=== PATIENT | female | born 1995 | race Caucasian/White ===

== ENCOUNTER → 2017-12-06 14:55 | Outpatient (CLI) | payer MEDICARE, OTHER, SELFPAY ==
[2017-12-06 17:25] LABS: Free Thyroxine Index 2.7 ug/dL (5.93-13.13); T4 (Thyroxine) 8.2 ug/dl (4.7-13.3); Thyroid Stimulating Hormone 3.49 uIU/ml (0.358-3.740); Triiodothryronine (T3) Uptake 33 % (31-39)
== END ==
PROVIDERS: PCP Nurse Practitioner Family; Visit Provider Nurse Practitioner Obstetrics & Gynecology
DX: E03.9 Hypothyroidism, unspecified (principal)
CPT/HCPCS: 36415; 84436; 84443; 84479

== ENCOUNTER → 2018-06-05 10:47 | Outpatient (CLI) | payer MEDICARE, OTHER, SELFPAY ==
--- NOTE | 2018-06-05 10:56 | XR_ITS ---
XR knee RT 3V HISTORY: Lateral knee pain ITS.REASON: RT KNEE INSTABILITY ORDERING PHYSICIAN: Arcelia Szymanski PATIENT AGE: 23 years COMPARISON: 05/11/2017 FINDINGS: No fracture or dislocation. No lytic or blastic change. Normal mineralization. No significant arthritic changes evident. 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
[2018-06-05 11:27] LABS: Basophils % 0.5 % (0.1-2.0); Eosinophils # 0.1 K/mm3 (0.0-0.4); Eosinophils % 1.5 % (0.1-12.0); Hemoglobin 11.3 g/dL (12.2-16.2); Lymphocytes # 1.5 K/mm3 (0.7-4.5); Lymphocytes % 20.3 K/mm3 (10-50); Mean Corpuscular HGB Conc 31.4 g/dL (31.8-35.4); Mean Corpuscular Hemoglobin 27.4 pg (27.0-31.2); Mean Corpuscular Volume 87.1 fl (81-99); Mean Platelet Volume 10.4 fl (7.4-10.4); Monocytes # 0.4 K/mm3 (0.1-1.0); Monocytes % 5.9 % (1.7-9.3); Neutrophils # 5.4 K/mm3 (1.8-7.8); Neutrophils % 71.8 % (37.0-80.0); Platelet Count 227 K/mm3 (142-424); Red Blood Count 4.13 M/mm3 (4.20-5.40); Red Cell Distribution Width 13.8 % (11.5-17.5); White Blood Count 7.5 K/mm3 (4.8-10.8)
[2018-06-05 12:57] LABS: Alanine Aminotransferase 33 U/L (12-78); Albumin Level 3.4 gm/dL (3.4-5.0); Albumin/Globulin Ratio 1.1 (1.1-1.8); Alkaline Phosphatase 97 U/L (46-116); Anion Gap 11.4 mEq/L (5-15); Aspartate Amino Transferase 18 U/L (15-37); Bilirubin,Total 0.2 mg/dL (0.2-1.0); Blood Urea Nitrogen 8 mg/dL (7-18); Calcium 8.8 mg/dL (8.5-10.1); Carbon Dioxide 25 mmol/L (21.0-32.0); Chloride 108 mmol/L (98-107); Creatinine,Serum 0.83 mg/dL (0.55-1.02); Estimated Glomerular Filt Rate 85 ml/min (>60); Free T4 (Free Thyroxine) 1.21 ng/dl (0.76-1.46); GFR (African American) 103 ML/MIN (>60); Glucose 95 mg/dL (74-106); Potassium 4.4 mmoL/L (3.5-5.1); Sodium 140 mmol/L (136-145); Total Protein,Serum 6.4 gm/dL (6.4-8.2)
== END ==
PROVIDERS: PCP Nurse Practitioner Family; Visit Provider Nurse Practitioner Family
DX: R25.1 Tremor, unspecified (principal); M25.361 Other instability, right knee; E03.9 Hypothyroidism, unspecified; R53.83 Other fatigue; F51.01 Primary insomnia
CPT/HCPCS: 36415; 73562; 80053; 84439; 84443; 85025

== ENCOUNTER → 2018-07-09 15:21 | Outpatient (CLI) | payer MEDICARE, OTHER, SELFPAY ==
[2018-07-09 15:40] LABS: Basophils % 0.5 % (0.1-2.0); Eosinophils # 0.1 K/mm3 (0.0-0.4); Eosinophils % 1.2 % (0.1-12.0); Hematocrit 35.9 % (37.0-47.0); Hemoglobin 11.5 g/dL (12.2-16.2); Lymphocytes # 1.6 K/mm3 (0.7-4.5); Lymphocytes % 19.4 K/mm3 (10-50); Mean Corpuscular HGB Conc 31.9 g/dL (31.8-35.4); Mean Corpuscular Hemoglobin 27.4 pg (27.0-31.2); Mean Corpuscular Volume 85.9 fl (81-99); Mean Platelet Volume 9.9 fl (7.4-10.4); Monocytes # 0.5 K/mm3 (0.1-1.0); Neutrophils # 6.1 K/mm3 (1.8-7.8); Platelet Count 275 K/mm3 (142-424); Red Blood Count 4.19 M/mm3 (4.20-5.40); Red Cell Distribution Width 13.7 % (11.5-17.5); White Blood Count 8.3 K/mm3 (4.8-10.8)
[2018-07-09 16:20] LABS: HCG Qualitative, Serum Negative (Negative)
[2018-07-09 16:41] LABS: Alanine Aminotransferase 44 U/L (12-78); Albumin Level 3.2 gm/dL (3.4-5.0); Albumin/Globulin Ratio 0.9 (1.1-1.8); Alkaline Phosphatase 115 U/L (46-116); Anion Gap 12.3 mEq/L (5-15); Aspartate Amino Transferase 24 U/L (15-37); Bilirubin,Total 0.3 mg/dL (0.2-1.0); Blood Urea Nitrogen 8 mg/dL (7-18); Calcium 8.8 mg/dL (8.5-10.1); Carbon Dioxide 25 mmol/L (21.0-32.0); Chloride 105 mmol/L (98-107); Estimated Glomerular Filt Rate 78 ml/min (>60); GFR (African American) 94 ML/MIN (>60); Globulin 3.6 gm/dl (1.3-3.2); Glucose 92 mg/dL (74-106); Potassium 4.3 mmoL/L (3.5-5.1); Sodium 138 mmol/L (136-145); Total Protein,Serum 6.8 gm/dL (6.4-8.2)
[2018-07-11 08:46] LABS: Folate 9.6 ng/mL (>3.0); Vitamin B12 268 pg/mL (232-1245)
== END ==
PROVIDERS: Family Provider Nurse Practitioner Family; PCP Nurse Practitioner Family; Visit Provider Specialist
DX: I10 Essential (primary) hypertension (principal); G93.40 Encephalopathy, unspecified; R56.9 Unspecified convulsions
CPT/HCPCS: 36415; 80053; 82607; 82746; 84443; 84703; 85025

== ENCOUNTER → 2018-07-20 10:30 | Outpatient (CLI) | payer MEDICARE, OTHER, SELFPAY ==
--- NOTE | 2018-07-20 10:35 | MR_ITS ---
MR head/brain wo/w con HISTORY: Headaches, seizures, ITS.REASON: evaluation for seizures ORDERING PHYSICIAN: Katheryn Jacobs MD PATIENT AGE: 23 years Comparison: None TECHNIQUE: Standard multiplanar multiecho sequences are performed without and with gadolinium enhancement. FINDINGS: No midline shift, mass effect, intracranial hemorrhage, or hydrocephalus. No evidence of acute infarction. The cerebellopontine angles, cerebellum, and brainstem are unremarkable. The hippocampal gyri have an unremarkable appearance. The temporal horns are symmetric. No pituitary mass. Optic chiasm and corpus callosum are unremarkable. No cerebellar ectopia. No enhancing lesions. No mastoid effusion or sinus air-fluid level. Minimal mucosal thickening involves ethmoid sinuses. IMPRESSION: Negative MRI of the brain without and with contrast
--- NOTE | 2018-07-20 11:25 | HMH.ITSHM ---
levothyroxine pantoprazole aspirin cetirizine promethazine metoprolol ranitidine quetiapine
== END ==
PROVIDERS: Family Provider Nurse Practitioner Family; PCP Nurse Practitioner Family; Visit Provider Specialist
DX: G93.40 Encephalopathy, unspecified (principal); R56.9 Unspecified convulsions; I10 Essential (primary) hypertension
CPT/HCPCS: 70553; A9576

== ENCOUNTER → 2018-08-20 09:16 | Outpatient (POV) | payer MEDICARE, OTHER, SELFPAY | PROVIDERS: Family Provider Nurse Practitioner Family; PCP Nurse Practitioner Family; Visit Provider Specialist | DX: G93.40 Encephalopathy, unspecified (principal); R56.9 Unspecified convulsions; I10 Essential (primary) hypertension | CPT/HCPCS: 95819 ==

== ENCOUNTER → 2018-09-24 09:27 | Outpatient (CLI) | payer MEDICARE, OTHER, SELFPAY ==
--- NOTE | 2018-09-24 10:00 | US_ITS ---
US transvaginal Ordering Physician: Arcelia Szymanski Patient Age: 23 years: Female HISTORY: ITS.REASON: PELVIC PAINpelvic pain several months. TECHNIQUE: Transvaginal pelvic ultrasound. COMPARISON :Previous pelvic ultrasound 10/11/2017. FINDINGS Uterus appears normal size. Slightly anteverted. It measures 8.45 seem in length x 3.7 cm x 4.9 cm. Endometrial stripe measures 6.1 mm. Ovaries more difficult to visualize today than previous study. They appear Normal in size bilaterally Right ovary measures 1.5 cm x 1.1 x 1.45 cm. 1.3 x 0.8 cm follicular cyst at right ovary Left ovary measures 1.9 x 0.75 cm x 1.0 cm Small left ovarian cyst, appear to be. 2 follicular cyst posteriorly largest measures 7.5 mm. No fluid in cul-de-sac No significant new findings versus previous 2017 study. IMPRESSION: ...... Uterus normal size . Anteverted uterus. Normal endometrial stripe . appear normal in size with follicles bilaterally. . No fluid in cul-de-sac
== END ==
PROVIDERS: PCP Nurse Practitioner Family; Visit Provider Nurse Practitioner Family
DX: R10.2 Pelvic and perineal pain (principal)
CPT/HCPCS: 76830

== ENCOUNTER → 2018-10-17 13:14 | Outpatient (CLI) | payer MEDICARE, OTHER, SELFPAY ==
[2018-10-19 13:47] LABS: Neisseria gonorrhoeae, NAA Negative (Negative)
== END ==
PROVIDERS: Visit Provider Nurse Practitioner Obstetrics & Gynecology
DX: R10.2 Pelvic and perineal pain (principal); N92.6 Irregular menstruation, unspecified
CPT/HCPCS: 87491; 87591

== ENCOUNTER → 2019-04-15 13:06 | Outpatient (CLI) | payer MEDICARE, OTHER, SELFPAY ==
--- NOTE | 2019-04-15 13:11 | US_ITS ---
US thyroid HISTORY: ITS.REASON: DHO, HYPOTHYROIDISM, THYROMEGLY ORDERING PHYSICIAN: Arcelia Szymanski APRN PATIENT AGE: 24 years Comparison: None FINDINGS: The right lobe is 3.8 x 1 x 1.6 cm with homogeneous echogenicity. No discrete nodule. The left lobe is 3.7 x 1 x 1.6 cm with homogeneous echogenicity. No discrete nodule. The isthmus has an unremarkable appearance. IMPRESSION: Unremarkable thyroid ultrasound
== END ==
PROVIDERS: PCP Nurse Practitioner Family; Visit Provider Nurse Practitioner Family
DX: E01.0 Iodine-deficiency related diffuse (endemic) goiter (principal)
CPT/HCPCS: 76536

== ENCOUNTER → 2020-04-09 12:35 | Outpatient (CLI) | payer MEDICARE, OTHER, SELFPAY ==
--- NOTE | 2020-04-09 12:35 | US_ITS ---
PROCEDURE: US TRANSVAGINAL CLINICAL INDICATION: pelvic pain- rule out ovarian cyst Right lower quadrant pain COMPARISON: TRANVAG US transvaginal from 09/24/2018 FINDINGS: UTERUS: 9cm x 5cmx 3cm with a combined endometrial thickness of 5.6mm LEFT OVARY: [id number] with a volume of 3.8ml. RIGHT OVARY: [id number] with a volume of 22.5ml. There is a 3 cm right ovarian cyst which appears simple No cul-de-sac fluid. IMPRESSION: 3 cm simple appearing right ovarian cyst Dictated by: Ismael Hernandez MD 04/09/2020 17:17 Electronically signed by Ismael Hernandez MD in [facility] 04/09/2020 17:17
== END ==
PROVIDERS: PCP Nurse Practitioner Family; Visit Provider Nurse Practitioner Obstetrics & Gynecology
DX: R10.31 Right lower quadrant pain (principal)
CPT/HCPCS: 76830

== ENCOUNTER → 2020-04-13 09:50 | Outpatient (CLI) | payer MEDICARE, OTHER, SELFPAY | PROVIDERS: PCP Nurse Practitioner Family; Visit Provider Nurse Practitioner Family | DX: G47.00 Insomnia, unspecified (principal); R53.83 Other fatigue; R51 Headache; G40.909 Epilepsy, unspecified, not intractable, without status epilepticus; Z68.42 Body mass index [BMI] 45.0-49.9, adult; G47.30 Sleep apnea, unspecified | CPT/HCPCS: G0399 ==

== ENCOUNTER 2020-04-26 22:14 | Emergency (ER) | payer MEDICARE, OTHER, SELFPAY ==
[2020-04-26 22:29] VITALS: BP 145/76; PULSE 88; RESP 16; TEMP 37.2; O2SAT 96; BMI 50.1
--- NOTE | 2020-04-26 22:41 | US_ITS ---
PROCEDURE: US TRANSVAGINAL CLINICAL INDICATION: RLQ pain, vag discharge COMPARISON: US TRANSVAGINAL from 04/09/2020 FINDINGS: The uterus is 7 x 3 x 5 cm with a combined endometrial thickness of 3 mm. No uterine mass evident. The right ovary is 4 x 3 cm and contains a 3 cm cyst. Blood flow is present within the right ovary. The left ovary has an unremarkable appearance at 3.4 x 2 cm with blood flow present. No cul-de-sac fluid is evident. IMPRESSION: 3 cm right ovarian cyst otherwise negative pelvic ultrasound Dictated by: Ismael Hernandez MD 04/27/2020 06:40 Electronically signed by Ismael Hernandez MD in [facility] 04/27/2020 06:40
--- NOTE | 2020-04-26 22:44 | HMH.EDABDPAI ---
ED Disposition Clinical Impression: Pneumonia Qualifiers: Pneumonia type: due to unspecified organism Laterality: right Lung location: lower lobe of lung Qualified Code(s): J18.9 - Pneumonia, unspecified organism Ovarian cyst Qualifiers: Laterality: right Qualified Code(s): N83.201 - Unspecified ovarian cyst, right side Disposition: Home, Self-Care Condition on Discharge: Good Instructions: DI for Ovarian Cyst, DI for Pneumonia -- Adult Prescriptions: Azithromycin [Z-Rodriguez 250mg Tab*] 250 mg PO UD DOSE PK #6 tab Prescription Printed Referrals: Arcelia Szymanski APRN [Primary Care Provider] - 3 days James Wade MD [Staff Physician] - - Critical Care Critical Care Time: No Attestation: On 04/26/20, the high probability of a clinically significant, sudden or life threatening deterioration of the following system(s) required my full and direct attention, intervention and personal management. The time I documented below is in addition to time spent performing reported procedures but includes the following listed in this critical care notation. Medical Decision Making - Medical Records Medical records reviewed: Yes: I reviewed the patient's medical records. - Florentino Inquiry Pt receiving controlled substance: No Vital Signs: 04/26/20 22:29 Temperature 99.0 F Temperature Source Oral Pulse Rate [Right] 88 Respiratory Rate 16 Blood Pressure [Right Arm] 145/76 H Blood Pressure Mean [Right Arm] 99 Blood Pressure Source [Right Arm] Automatic Cuff Blood Pressure Position [Right Arm] Sitting 02 Sat by Pulse Oximetry 96 Oxygen Delivery Method Room Air - Lab Data Lab Results 04/26/20 22:40: Urine Color Yellow, Urine Appearance Sl cloudy, Urine pH 7.0, Ur Specific [place] <= 1.005, Urine Protein Negative, Urine Glucose (UA) Negative, Urine Ketones Negative, Urine Blood 2+, Urine Nitrate Negative, Urine Bilirubin Negative, Urine Urobilinogen 0.2, Ur Leukocyte Esterase Negative, Urine RBC 3-5, Ur Squamous Epith Cells 10-20 04/26/20 22:40: Urine HCG, Qual Negative 04/26/20 22:40: WBC 11.4 H, RBC 4.50, Hgb 13.4, Hct 40.7, MCV 90.4, MCH 29.8, MCHC 33.0, RDW 13.6, Plt Count 271, MPV 9.4, Neut % (Auto) 65.7, Lymph % (Auto) 25.2, [place] % (Auto) 6.3, Eos % (Auto) 2.3, Baso % (Auto) 0.5, Neut # (Auto) 7.5, Lymph # (Auto) 2.9, [place] # (Auto) 0.7, Eos # (Auto) 0.3, Baso # (Auto) 0.1 04/26/20 22:40: Sodium 138, Potassium 4.3, Chloride 104, Carbon Dioxide 29, Anion Gap 9.3, BUN 16, Creatinine 0.80, Estimated Creat Clear 101, Estimated GFR 87, Est GFR ( Amer) 106, Glucose 89, Calcium 9.8 Result diagrams: 04/26/20 22:40 04/26/20 22:40 Orders (Tests/Meds): ED MEDICATIONS Discontinued Medications Generic Name Dose Route Start Last Admin Trade Name Freq PRN Reason Stop Dose Admin Ioversol 75 ml 04/27/20 00:08 04/27/20 00:09 Rad-Optiray 350 100ml Vial IV 04/27/20 00:09 75 ml ONCE ONE Administration Protocol Sodium Chloride 10 ml 04/27/20 00:08 04/27/20 00:09 Rad-Saline Flush 10ml Syringe IV 04/27/20 00:09 10 ml ONCE ONE Administration ORDERS Category Date Time Status CT abdomen pelvis w con Stat Cat Scan 04/26/20 23:01 Taken US transvaginal Stat Exams 04/26/20 22:41 Taken - CT Data CT Scan: Abdomen, Pelvis Time Received: 00:[address] Reviewed: Yes: I have reviewed the patient's CT results Findings Narrative: Cholelithiasis, normal appendix, right ovarian cyst, right lower lobe infiltrate - US Data US Images: Pelvis ED US Reviewed: Yes: I have reviewed the patient's US results Findings Narrative: Right ovarian cyst, no tubo-ovarian abscess, normal flow to both ovaries Medical Decision Narrative: Patient here with worsening right lower quadrant pain thought to be due to right ovarian cyst. Transvaginal ultrasound shows no tubo-ovarian abscess, normal flow to both ovaries and no ovarian torsion. CT scan shows a normal appendix. There is a cyst in the right ovary.
[2020-04-26 22:56] LABS: Microscopic, Urine URINE MICROSCOPIC (MICROSCOPIC)
[2020-04-26 22:57] LABS: Basophils # 0.1 K/mm3 (0-0.2); Basophils % 0.5 % (0.1-2.0); Eosinophils # 0.3 K/mm3 (0.0-0.4); Eosinophils % 2.3 % (0.1-12.0); Hematocrit 40.7 % (37.0-47.0); Hemoglobin 13.4 g/dL (12.2-16.2); Lymphocytes # 2.9 K/mm3 (0.7-4.5); Lymphocytes % 25.2 % (10-50); Mean Corpuscular Hemoglobin 29.8 pg (27.0-31.2); Mean Corpuscular Volume 90.4 fl (81-99); Mean Platelet Volume 9.4 fl (7.4-10.4); Monocytes # 0.7 K/mm3 (0.1-1.0); Monocytes % 6.3 % (1.7-9.3); Neutrophils # 7.5 K/mm3 (1.8-7.8); Neutrophils % 65.7 % (37.0-80.0); Platelet Count 271 K/mm3 (142-424); Red Cell Distribution Width 13.6 % (11.5-17.5); White Blood Count 11.4 K/mm3 (4.8-10.8)
[2020-04-26 22:59] LABS: Appearance,Urine SL CLOUDY (Clear); Bilirubin,Urine Negative (Negative); Blood, Urine 2+ (Negative); Color,Urine YELLOW (Yellow); Glucose,Urine (UA) Negative (Negative); Ketones,Urine Negative (Negative); Leukocyte Esterase,Urine Negative (Negative); Nitrate,Urine Negative (Negative); Protein,Urine Negative (Negative); Specific Gravity, Urine <= 1.005 (1.005-1.030); Urobilinogen,Urine 0.2 EU/dl (0.2)
--- NOTE | 2020-04-26 23:01 | CT_ITS ---
PROCEDURE: CT ABDOMEN PELVIS W CON CLINICAL INDICATION: RLQ pain Right lower quadrant pain with vomiting COMPARISON: ABDPELW/WO CT ABD PELVIS W/WO CONTRAST from 10/06/2016 TECHNIQUE: IV Contrast: 75ML OPTIRAY 350 Oral Contrast none Axial images obtained with sagittal and coronal reformats. All CT scans at the facility use one or more dose reduction, viz: automated exposure control, ma/kV adjustment per patient size (including targeted exams where dose is matched to indication, i.e. head), or iterative reconstruction technique. FINDINGS: LOWER THORAX: Patchy tree in bud consolidation in the left lower lobe with parenchymal opacity measuring up to 1 cm which may be inflammatory/infectious and may be confirmed with follow-up.. There is a 4 mm noncalcified nodule in the right lung base. ABDOMEN & PELVIS: Cholelithiasis. The liver, spleen, adrenal glands, pancreas, and kidneys have an unremarkable appearance. No evidence of appendicitis. No intestinal obstruction or free air. There is a 2 cm right ovarian cyst. There is a small umbilical hernia containing fat. No acute bony findings. IMPRESSION: 1. No evidence of appendicitis. 2. 2 cm right ovarian cyst. 3. Patchy infiltrate in the left lower lobe with 1 cm parenchymal density. 4 mm noncalcified nodule right lung base. Consider follow-up to confirm resolution 4. Cholelithiasis Dictated by: Ismael Hernandez MD 04/27/2020 06:35 Electronically signed by Ismael Hernandez MD in [facility] 04/27/2020 06:35
[2020-04-26 23:05] LABS: Urine Pregnancy, HCG Qual. Negative (Negative)
[2020-04-26 23:18] LABS: Anion Gap 9.3 mEq/L (5-15); Blood Urea Nitrogen 16 mg/dl (7-17); Calcium 9.8 mg/dl (8.4-10.2); Carbon Dioxide 29 mmol/L (22.0-30.0); Chloride 104 mmol/L (98-107); Creatinine Clearance Estimated 101 mL/min (50-200); Estimated Glomerular Filt Rate 87 ml/min (>60); GFR (African American) 106 ML/MIN (>60); Glucose 89 mg/dl (74-100); Potassium 4.3 mmoL/L (3.5-5.1); Sodium 138 mmol/L (136-145)
[2020-04-27 00:42] VITALS: BP 136/72; PULSE 81; RESP 16; TEMP 37.2; O2SAT 97
== END 2020-04-27 00:45 | disposition home or self-care (01) ==
PROVIDERS: Emergency Provider Emergency Medicine; PCP Nurse Practitioner Family
DX: J18.9 Pneumonia, unspecified organism (principal); N83.201 Unspecified ovarian cyst, right side; K80.20 Calculus of gallbladder without cholecystitis without obstruction; E66.01 Morbid (severe) obesity due to excess calories; Z68.43 Body mass index [BMI] 50.0-59.9, adult; K21.9 Gastro-esophageal reflux disease without esophagitis; I10 Essential (primary) hypertension; E03.9 Hypothyroidism, unspecified; G43.709 Chronic migraine without aura, not intractable, without status migrainosus; G40.909 Epilepsy, unspecified, not intractable, without status epilepticus; Z79.899 Other long term (current) drug therapy
CPT/HCPCS: 74177; 76830; 80048; 81001; 81025; 85025; 99283; Q9967

== ENCOUNTER → 2020-05-21 08:39 | Outpatient (CLI) | payer MEDICARE, OTHER, SELFPAY ==
--- NOTE | 2020-05-21 08:42 | US_ITS ---
PROCEDURE: US LIVER CLINICAL INDICATION: ELEVATED LIVER ENZYMES COMPARISON: No exams were available for comparison FINDINGS: PANCREAS: Unremarkable. No obvious mass or abnormal fluid collection. No ductal dilatation LIVER: No focal liver lesions demonstrated. Homogeneous echogenicity. No intrahepatic biliary ductal dilatation evident. There is appropriate direction of blood flow within a non dilated portal vein RIGHT KIDNEY: Unremarkable. Normal size and echogenicity. No hydronephrosis, 11 centimeters x 4 centimeters x 7 centimeters GALLBLADDER: Gallstone, gallbladder wall thickness 3.6 millimeters, common bile duct 2.7 millimeters IMPRESSION: Gallstone Dictated by: Tarik Naik 05/21/2020 09:54 Electronically signed by Tarik Naik in [facility] 05/21/2020 09:54
== END ==
PROVIDERS: PCP Nurse Practitioner Family; Visit Provider Nurse Practitioner Family
DX: R74.8 Abnormal levels of other serum enzymes (principal)
CPT/HCPCS: 76705

== ENCOUNTER → 2020-06-22 10:55 | Outpatient (CLI) | payer MEDICARE, OTHER, SELFPAY ==
[2020-06-22 11:33] LABS: Basophils % 0.3 % (0.1-2.0); Eosinophils # 0.2 K/mm3 (0.0-0.4); Eosinophils % 2.5 % (0.1-12.0); Hematocrit 38.6 % (37.0-47.0); Hemoglobin 13.1 g/dL (12.2-16.2); Lymphocytes # 2.2 K/mm3 (0.7-4.5); Lymphocytes % 24.1 % (10-50); Mean Corpuscular Hemoglobin 30.7 pg (27.0-31.2); Mean Corpuscular Volume 90.2 fl (81-99); Monocytes # 0.5 K/mm3 (0.1-1.0); Monocytes % 5.8 % (1.7-9.3); Neutrophils # 6.2 K/mm3 (1.8-7.8); Neutrophils % 67.3 % (37.0-80.0); Platelet Count 225 K/mm3 (142-424); Red Blood Count 4.28 M/mm3 (4.20-5.40); Red Cell Distribution Width 13.2 % (11.5-17.5); White Blood Count 9.2 K/mm3 (4.8-10.8)
[2020-06-22 11:36] LABS: Urine Pregnancy, HCG Qual. Negative (Negative)
[2020-06-22 12:00] LABS: Chloride 104 mmol/L (98-107)
[2020-06-22 12:01] LABS: Potassium 4.4 mmoL/L (3.5-5.1); Sodium 137 mmol/L (136-145)
[2020-06-22 12:03] LABS: Alanine Aminotransferase 126 U/L (12-78); Aspartate Amino Transferase 55 U/L (14-36); Blood Urea Nitrogen 13 mg/dl (7-17); Estimated Glomerular Filt Rate 102 ml/min (>60); GFR (African American) 123 ML/MIN (>60)
[2020-06-22 12:04] LABS: Albumin Level 3.8 g/dl (3.5-5.0); Albumin/Globulin Ratio 1.4 (1.1-1.8); Alkaline Phosphatase 113 U/L (38-126); Anion Gap 11.4 mEq/L (5-15); Bilirubin,Total 0.4 mg/dl (0.2-1.3); Calcium 9.6 mg/dl (8.4-10.2); Carbon Dioxide 26 mmol/L (22.0-30.0); Globulin 2.7 g/dL (1.3-3.2); Glucose 99 mg/dl (74-100); Total Protein,Serum 6.5 g/dl (6.3-8.2)
[2020-06-22 13:19] LABS: Coronavirus 19 IgG Antibody Negative (Negative); Coronavirus 19 IgM Antibody Negative (Negative)
== END ==
PROVIDERS: Visit Provider Surgery
DX: K80.20 Calculus of gallbladder without cholecystitis without obstruction (principal); Z01.818 Encounter for other preprocedural examination
CPT/HCPCS: 36415; 80053; 81025; 85025; 86328

== ENCOUNTER 2020-06-24 06:00 | Day surgery (SDC) | payer MEDICARE, OTHER, SELFPAY ==
[2020-06-24] VITALS (10 sets, daily range): BP systolic 105–145; BP diastolic 68–95; PULSE 78–91; RESP 16–18; TEMP 36.1–36.7; O2SAT 94–99
--- NOTE | 2020-06-24 07:35 | HMH.ANESCL ---
[facility] Anesthesia Checklist - Structural Data Admitted From: Home Planned Operative Procedure/s: arline cohene Consent for Planned Operative Procedure(s) Verified: Yes - Additional verifications Anesthesia Reactions: No Hx Blood Transfusions: No Blood Transfusion Reaction: No - Airway Assessment C-Spine Mobility Assessed: Yes TMJ Mobility Assessed: Yes Dentition: Poor Dentition - Neurological Assessment Level of Consciousness: Awake, Alert, Appropriate - Anesthesia Plan Anesthesia Risk discussed: Yes Anesthesia Plan: Verified ASA Class: III Anesthesia Type: General [facility] History I have reviewed the patient's past medical history: Yes Medical History: Reports:: Gastroesophageal Reflux Disease(GERD), Hypertension, Migraine, Seizures Denies:: Cancer, Diabetes Mellitus Type 1, Diabetes Mellitus Type 2, Internal Pacemaker, MRSA *Have you ever received a pneumonia vaccine?: No *Have you received a flu vaccine this season?: Yes Other Medical History: Reports: Hypothyroidism, Thyroid Disease. Denies: Blood Transfusion Reaction Anesthesia experience/problems:: none Other Surgeries: Yes: Dilation and Curettage. No: Pacemaker Amputation: No Fractures: No - *Social History Last grade of school completed: 9th or 10th Smoking Status: Never smoker Alcohol Intake: never Alcohol Intake Frequency:: other Substance Use Type: denies use *Occupational Status:: disabled Housing: apartment Household Members: family *Travel in the last 8 weeks: None Family Hx:: Diabetes, Hypertension [facility] history: Spontaneous
--- NOTE | 2020-06-24 08:56 | P.OP_ITS ---
Date of procedure: 06/24/20 Pre-op Diagnosis:: Symptomatic gallstones Post-op Diagnosis:: Same Procedure performed:: Laparoscopic cholecystectomy Surgeon:: Gonzalo Qiu MD Chief Controller Station(s):: None DRIVABILITY TECHNICIAN:: Jesús Reed Anesthesia: GETA Estimated blood loss (mL): 40 Clinical Note:: Patient is a 25-year-old female referred by Robyn Szymanski for gallbladder. Patient resides in [place]. She is somewhat of a poor historian. For a couple of months she states that she has had some symptomatology consistent with gallbladder disease. She states that every time she eats that she has vomiting occurring postprandially with some associated pain in the general right abdomen. She states that she is unable to tolerate any oral nutrition. She had been seen in the emergency department and diagnosed with possible ovarian cyst. However, CT scan did reveal findings of gallstone. She underwent ultrasound for confirmation revealing gallstones with mildly thickened gallbladder wall with normal common bile duct. Operative findings:: She has fatty infiltration the liver. She had a distended gallbladder with omental adhesions. There are multiple stones Operative note:: Patient was taken to the operating room. She was positioned in a supine position. General anesthesia was induced via endotracheal tube. Abdomen was prepped and draped in the standard surgical fashion. Subumbilical skin incision was made. Dissection was carried down to fascia and while performing abdominal wall lift Veress needle was inserted. However good insufflation flow and pressures were unable to be achieved. Therefore through approximately 1 mm left subcostal incision Veress needle was inserted and CO2 pneumoperitoneum was achieved to 15 mmHg. 11 mm optical trocar was inserted at the umbilicus. Intraperitoneal contents were visualized. She was positioned in reverse Trendelenburg left side down. A couple 5 mm trochars were inserted in the right upper abdomen. 10 mm trocar was inserted in the epigastrium. Liver was elevated and gallbladder was identified. It was somewhat thickened. There was fatty infiltration of the liver. Gallbladder was retracted anteriorly. Omental adhesions to the gallbladder were taken down using blunt dissection. Prolonged dissection was carried out down to the neck of the gallbladder. Infundibulum/Gallegos's pouch of the gallbladder was retracted anterior laterally. Blunt dissection was carried out the neck of the gallbladder bluntly incising the visceral peritoneum. Dissection was carried out isolating the cystic duct and cystic artery. Cystic duct was multiply clipped and then divided sharply. Cystic artery was carefully coagulated with GABO ultrasonic harmonic becca and divided. Gallbladder was dissected free from the liver in a retrograde fashion using GABO ultrasonic robotic becca. Gallbladder was placed within an Endo Catch retrieval device and removed from the peritoneal cavity via the umbilical trocar site which required extension of the fascial and skin incisions for delivery. Gallbladder fossa was inspected for hemostasis which was assured. Irrigation was performed. Trochars were removed as CO2 pneumoperitoneum was evacuated. Fascia at the umbilicus was closed with multiple interrupted 0 Ethibond sutures. Local anesthetic was infiltrated. Skin incisions were closed with 4-0 Monocryl in a subcuticular fashion. Steri- Strips and dressings were applied. Condition: stable Disposition: PACU Specimens:: Gallbladder and contents Complications:: None immediately apparent
--- NOTE | 2020-06-24 09:08 | HMH.ANESI ---
[facility] Anesthesia Record Part I Intake, IV Amount: 2,200 Estimated blood loss (mL): 0 Urine output (mL): 0 Blood Pressure: 144/86 SaO2: 95 Pulse Rate: 91 Respiratory Rate: 18 Temperature: 97.9 F Patient is:: Awake, Stable Stable to PACU at:: 09:05
--- NOTE | 2020-06-24 10:08 | SUR.PHASEII ---
Pt doing well, no C/O pain. Abdominal dressing intact with 3 upper abdominal dressings with small amt of serosang drng. IV out, discharge instructions reviewed with pt and alli. Discharged poer W/C out to private vehicle, verbalized thanks to staff.
--- NOTE | 2020-06-26 10:03 | HMH.ANESII ---
[facility] Anesthesia Record Part II Discharge Time: 09:35 Destination: [facility] PACU nurse assessment reviewed?: Yes Patient Condition:: Good Anesthesia Complications:: None Swallowing reflex intact?: Yes Cyanosis?: No Blood Pressure: 117/77 Pulse Rate: 85 Temperature: 97.5 F Mental Status: Alert & Oriented Pain level:: 2 Nausea and/or vomitting:: None Intake, IV Amount: 1,500
[2020-06-26 10:04] VITALS: BP 117/77; PULSE 85; TEMP 36.4
== END 2020-06-24 10:08 | disposition home or self-care (01) ==
LOC: OR 06:03
PROVIDERS: PCP Nurse Practitioner Family; Visit Provider Surgery
PROC: 0FT44ZZ Resection of Gallbladder, Percutaneous Endoscopic Approach (ICD-10-PCS; CPT 47562; principal; 2020-06-24 07:30)
DX: K80.20 Calculus of gallbladder without cholecystitis without obstruction (principal); K66.0 Peritoneal adhesions (postprocedural) (postinfection); K76.0 Fatty (change of) liver, not elsewhere classified; I10 Essential (primary) hypertension; K21.9 Gastro-esophageal reflux disease without esophagitis; G43.909 Migraine, unspecified, not intractable, without status migrainosus; R56.9 Unspecified convulsions; E03.9 Hypothyroidism, unspecified; Z83.3 Family history of diabetes mellitus; Z82.49 Family history of ischemic heart disease and other diseases of the circulatory system; Z88.8 Allergy status to other drugs, medicaments and biological substances; Z91.048 Other nonmedicinal substance allergy status
CPT/HCPCS: 47562; 88304; 96374; 99281; J2405; J2710

== ENCOUNTER 2020-06-24 16:41 | Emergency (ER) | payer MEDICARE, OTHER, SELFPAY ==
--- NOTE | 2020-06-24 16:51 | HMH.EDWNDL ---
ED Disposition Clinical Impression: Encounter for wound re-check, Postoperative bleeding from incision Disposition: Home, Self-Care Condition on Discharge: Good Instructions: DI for Post-Surgical Bleeding Additional Instructions: Return to the emergency department or your surgeon if you develop bleeding that soaks through your abdominal binder. If you begin bleeding again, apply pressure for 20 minutes. If this does not resolve bleeding, come back to the emergency room. Otherwise, follow-up with your surgeon as scheduled. - Critical Care Critical Care Time: No Attestation: On 06/24/20, the high probability of a clinically significant, sudden or life threatening deterioration of the following system(s) required my full and direct attention, intervention and personal management. The time I documented below is in addition to time spent performing reported procedures but includes the following listed in this critical care notation. Medical Decision Making - Medical Records Medical records reviewed: Yes: I reviewed the patient's medical records. - Florentino Inquiry Pt receiving controlled substance: No Vital Signs: 06/24/20 16:57 06/24/20 17:05 Temperature 98.7 F Temperature Source Oral Pulse Rate [Radial] 94 H 86 Respiratory Rate 18 24 Blood Pressure [Right Arm] 139/71 109/78 L Blood Pressure Mean [Right Arm] 93 88 Blood Pressure Source [Right Arm] Automatic Cuff Automatic Cuff Blood Pressure Position [Right Arm] Sitting Sitting 02 Sat by Pulse Oximetry 96 99 Oxygen Delivery Method Room Air Room Air Medical Decision Narrative: Dressing was removed, new dressing placed on top of the umbilicus, new Tegaderm placed. Patient applied pressure for 15 minutes and bleeding has resolved. Abdominal binder was placed. Instructed the patient to come in if she soaked through the abdominal binder, though I suspect that rest and increased pressure over the wound will rectify the situation. She has no abdominal pain, low suspicion for acute surgical complication. Discharged home. Wound/Laceration HPI - General Stated Complaint: Surg 0729 Gallbladder,bleeding Time Seen by Provider: 06/24/20 16:51 Source of Information: Patient Limitations: No Limitations - History of Present Illness HPI narrative: This is a 25-year-old female who presents to the emergency department for bleeding from the umbilicus. She had a laparoscopic cholecystectomy today and has been sleeping. When she woke up there was blood underneath the Tegaderm. She has generalized abdominal discomfort from the surgery. No new pain. No injury or fall. No blood thinners. - Related Data Home Medications Medication Instructions Recorded Confirmed levothyroxine 100 mcg tablet 100 mcg PO DAILY 12/10/19 06/24/20 Metoprolol Succinate 25 mg PO QDAY 04/26/20 06/24/20 Montelukast Sodium [Singulair] 10 mg PO QHS 04/26/20 06/24/20 Sulfamethoxazole/Trimethoprim 1 each PO BID 04/26/20 06/24/20 [Bactrim DS tablet] linaclotide 72 mcg capsule 72 mcg PO DAILY 06/01/20 06/24/20 Folic Acid 1 mg PO DAILY 06/22/20 06/24/20 Medroxyprogesterone Acetate 10 mg PO DAILY 06/22/20 06/24/20 levETIRAcetam [Levetiracetam] 500 mg PO DAILY 06/22/20 06/24/20 Aspirin [Aspir 81] 81 mg PO DAILY 06/24/20 06/24/20 Previous Rx's Medication Instructions Recorded vitamin with calcium 1 tab PO DAILY #30 tab 05/15/20 no.72-iron 27 mg-folic acid 1 mg tablet Allergies Allergy/AdvReac Type Severity Reaction Status Date / Time adhesive tape Allergy Intermediate Verified 06/22/20 08:24 diphenhydramine Allergy Mild I-HIVES Verified 06/22/20 08:24 [From [facility]IMO] [facility] History - Hepatitis A Screen Attestation statement:: This patient has been screened for Hepatitis A risk factors. I have reviewed the patient's past medical history: Yes Medical History: Reports:: Gastroesophageal Reflux Disease(GERD), Hypertension, Migraine, Seizures Denies:: Cancer
[2020-06-24 16:57] VITALS: BP 139/71; PULSE 94; RESP 18; TEMP 37.1; O2SAT 96; BMI 39.9
[2020-06-24 17:23] VITALS: BP 123/85; PULSE 80; RESP 18; TEMP 36.7; O2SAT 98
== END 2020-06-24 17:24 | disposition home or self-care (01) ==
PROVIDERS: Emergency Provider Emergency Medicine; PCP Nurse Practitioner Family
DX: K91.840 Postprocedural hemorrhage of a digestive system organ or structure following a digestive system procedure (principal); G43.709 Chronic migraine without aura, not intractable, without status migrainosus; E03.9 Hypothyroidism, unspecified; K21.9 Gastro-esophageal reflux disease without esophagitis; I10 Essential (primary) hypertension; Z91.048 Other nonmedicinal substance allergy status; Z79.899 Other long term (current) drug therapy
CPT/HCPCS: 99281

== ENCOUNTER → 2020-08-04 13:47 | Outpatient (CLI) | payer MEDICARE, OTHER, SELFPAY ==
--- NOTE | 2020-08-04 14:17 | XR_ITS ---
PROCEDURE: XR CHEST PORTABLE CLINICAL HISTORY: eval for pneumonia COMPARISON: No exams were available for comparison FINDINGS: The cardiomediastinal silhouette and pulmonary vascularity are within normal limits. The lungs are clear without infiltrates, suspicious nodules, or pleural effusions. No acute bony abnormalities. IMPRESSION: No acute findings. Dictated by: Ismael Hernandez MD 08/04/2020 15:11 Ismael Hernandez MD in [facility] 08/04/2020 15:11
[2020-08-06 19:51] LABS: Covid-19 Nasal PCR Sendout Lex Not Detected
== END ==
PROVIDERS: Nurse Practitioner Family; PCP Nurse Practitioner Family; Visit Provider Specialist
DX: R05 Cough (principal); R09.89 Other specified symptoms and signs involving the circulatory and respiratory systems; Z03.818 Encounter for observation for suspected exposure to other biological agents ruled out
CPT/HCPCS: 71045; U0004

== ENCOUNTER → 2023-09-27 13:25 | Outpatient (CLI) | payer MEDICARE, MEDICAID, SELFPAY ==
[2023-09-27 13:32] LABS: Basophils # 0.1 K/mm3 (0-0.2); Basophils % 0.5 % (0.1-2.0); Eosinophils # 0.3 K/mm3 (0.0-0.4); Eosinophils % 2.8 % (0.1-12.0); Hematocrit 41.8 % (37.0-47.0); Hemoglobin 14.2 g/dL (12.2-16.2); Lymphocytes # 2.1 K/mm3 (0.7-4.5); Lymphocytes % 22.5 % (10-50); Mean Corpuscular HGB Conc 33.9 g/dL (31.8-35.4); Mean Corpuscular Hemoglobin 30.9 pg (27.0-31.2); Mean Corpuscular Volume 91.2 fl (81-99); Mean Platelet Volume 9.1 fl (7.4-10.4); Monocytes # 0.5 K/mm3 (0.1-1.0); Monocytes % 5.5 % (1.7-9.3); Neutrophils # 6.5 K/mm3 (1.8-7.8); Neutrophils % 68.8 % (37.0-80.0); Platelet Count 250 K/mm3 (142-424); Red Blood Count 4.58 M/mm3 (4.20-5.40); Red Cell Distribution Width 13.2 % (11.5-17.5); White Blood Count 9.4 K/mm3 (4.8-10.8)
[2023-09-27 13:59] LABS: Alanine Aminotransferase 46 U/L (12-78); Albumin Level 4.5 g/dl (3.5-5.0); Albumin/Globulin Ratio 1.8 (1.1-1.8); Alkaline Phosphatase 95 U/L (38-126); Anion Gap 15.3 mEq/L (5-15); Aspartate Amino Transferase 40 U/L (14-36); Bilirubin,Total 0.6 mg/dl (0.2-1.3); Blood Urea Nitrogen 11 mg/dl (7-17); Calcium 9.4 mg/dl (8.4-10.2); Carbon Dioxide 25 mmol/L (22.0-30.0); Chloride 104 mmol/L (98-107); Chol/HDL Ratio 4.7 (1-3.5); Cholesterol 194 mg/dl (140-200); Estimated Glomerular Filt Rate 100 ml/min (>60); GFR (African American) 121 ML/MIN (>60); Globulin 2.5 g/dL (1.3-3.2); Glucose 87 mg/dl (74-100); HDL Cholesterol 41 mg/dl (40-60); Potassium 4.3 mmoL/L (3.5-5.1); Sodium 140 mmol/L (136-145); Triglycerides 126 mg/dl (30-150); VLDL Cholesterol 25 mg/dL (0-40)
[2023-09-27 14:10] LABS: Direct LDL Cholesterol 114.13 mg/dL (100-129)
[2023-09-27 14:19] LABS: 25-OH Vitamin D, Total 46.7 ng/mL (30-100); T4 (Thyroxine) 9.9 ug/dl (5.53-11.0)
[2023-09-27 14:32] LABS: Thyroid Stimulating Hormone 4.16 uIU/mL (0.465-4.68)
[2023-09-27 15:35] LABS: Ferritin 37.6 ng/ml (6.24-137)
[2023-09-27 16:57] LABS: Hemoglobin A1C 5.1 % (4.0-6.0)
[2023-09-28 09:52] LABS: Triiodothyronine (T3) Free 2.7 pg/mL (2.0-4.4)
== END ==
PROVIDERS: PCP Nurse Practitioner Family; Visit Provider Nurse Practitioner Family
DX: E03.9 Hypothyroidism, unspecified (principal); E11.9 Type 2 diabetes mellitus without complications; D50.9 Iron deficiency anemia, unspecified; R79.89 Other specified abnormal findings of blood chemistry; Z68.42 Body mass index [BMI] 45.0-49.9, adult
CPT/HCPCS: 36415; 80053; 80061; 82306; 82728; 83036; 84436; 84443; 84481; 85025

== ENCOUNTER 2024-01-05 09:58 | Outpatient (CLI) | payer MEDICARE, MEDICAID, SELFPAY ==
[2024-01-05 10:54] LABS: Hemoglobin A1C 5.2 % (4.0-6.0)
[2024-01-05 10:58] LABS: Alanine Aminotransferase 47 U/L (12-78); Albumin Level 3.7 g/dl (3.5-5.0); Albumin/Globulin Ratio 1.1 (1.1-1.8); Alkaline Phosphatase 233 U/L (38-126); Anion Gap 12.7 mEq/L (5-15); Aspartate Amino Transferase 33 U/L (14-36); Bilirubin,Total 0.4 mg/dl (0.2-1.3); Blood Urea Nitrogen 15 mg/dl (7-17); Calcium 9.8 mg/dl (8.4-10.2); Carbon Dioxide 25 mmol/L (22.0-30.0); Chloride 107 mmol/L (98-107); Chol/HDL Ratio 2.5 (1-3.5); Cholesterol 107 mg/dl (140-200); Estimated Glomerular Filt Rate 147 ml/min (>60); GFR (African American) 178 ML/MIN (>60); Globulin 3.4 g/dL (1.3-3.2); Glucose 100 mg/dl (74-100); HDL Cholesterol 43 mg/dl (40-60); Potassium 4.7 mmoL/L (3.5-5.1); Sodium 140 mmol/L (136-145); Total Protein,Serum 7.1 g/dl (6.3-8.2); Triglycerides 43 mg/dl (30-150); VLDL Cholesterol 9 mg/dL (0-40)
[2024-01-05 11:09] LABS: Direct LDL Cholesterol 52.65 mg/dL (100-129)
[2024-01-05 11:17] LABS: T4 (Thyroxine) 8.1 ug/dl (5.53-11.0)
[2024-01-05 11:31] LABS: Thyroid Stimulating Hormone 2.62 uIU/mL (0.465-4.68)
[2024-01-06 08:38] LABS: Triiodothyronine (T3) Free 4.3 pg/mL (2.0-4.4)
== END 2024-01-05 23:59 ==
LOC: LAB.DROPOF 09:59
PROVIDERS: PCP Nurse Practitioner Family; Visit Provider Nurse Practitioner Family
DX: E03.9 Hypothyroidism, unspecified (principal); E11.9 Type 2 diabetes mellitus without complications; Z79.899 Other long term (current) drug therapy
CPT/HCPCS: 80053; 80061; 83036; 84436; 84443; 84481

== ENCOUNTER 2024-05-14 18:00 | Outpatient (CLI) | payer MEDICARE, MEDICAID, SELFPAY ==
[2024-05-14 20:05] LABS: Free T4 (Free Thyroxine) 1.23 ng/dl (0.78-2.19)
[2024-05-14 20:06] LABS: 25-OH Vitamin D, Total 45.8 ng/mL (30-100)
[2024-05-14 20:08] LABS: T4 (Thyroxine) 9.6 ug/dl (5.53-11.0)
[2024-05-14 20:22] LABS: Thyroid Stimulating Hormone 1.97 uIU/mL (0.465-4.68)
[2024-05-14 20:41] LABS: Vitamin B12 747 pg/mL (239-931)
[2024-05-14 21:31] LABS: Ferritin 38.8 ng/ml (6.24-137)
[2024-05-16 08:46] LABS: Thyroid Peroxidase Antibodies <9 IU/mL (0-34); Triiodothyronine (T3) Free 2.7 pg/mL (2.0-4.4)
[2024-05-16 15:16] LABS: Thyroglobulin Level <1.0 IU/mL (0.0-0.9)
== END 2024-05-14 23:59 | disposition home or self-care (01) ==
LOC: LAB.DROPOF 05-15 12:02
PROVIDERS: PCP Nurse Practitioner Family; Visit Provider Nurse Practitioner Family
DX: E03.9 Hypothyroidism, unspecified (principal); D50.9 Iron deficiency anemia, unspecified; R00.0 Tachycardia, unspecified; E55.9 Vitamin D deficiency, unspecified; R79.89 Other specified abnormal findings of blood chemistry; Z68.43 Body mass index [BMI] 50.0-59.9, adult
CPT/HCPCS: 82306; 82607; 82728; 84436; 84439; 84443; 84481; 86376; 86800